=== PATIENT | female | born 1960 | race Caucasian/White ===

== ENCOUNTER 2024-05-21 14:01 | Inpatient (IN) ==
[2024-05-21] MEDS: LORazepam 2 mg VIAL 1 ml IV PUSH ONE (14:40)
[2024-05-21] MEDS: Lactated Ringers 1000 ml BAG 1,000 ML IV ONE (14:40)
[2024-05-21] MEDS: LORazepam 2 MG/ML 1 mL Syringe IV ONE (14:40)
[2024-05-21 14:58] LABS: Rapid Strep Molecular Negative (Negative)
[2024-05-21 15:00] LABS: ABS Basophils 0.1 10^3/uL (0.0-0.1); ABS Lymphocytes 2.1 10^3/uL (1.0-4.8); ABS Monocytes 1.4 10^3/uL (0.0-0.9); ABS Nucleated RBC 0.01 10^3/ul; Eosinophil % 0.1 %; Hematocrit 41.9 % (35-45); Hemoglobin 13.8 g/dL (11.5-14.3); Lymphocyte % 12.8 %; Mean Corpuscular Hgb Conc 33.1 g/dL (31-36); Mean Corpuscular Volume 96.8 fL (80-97); Mean Platelet Volume 7.1 fL (7.5-11.2); Platelet Count 461 10^3/uL (150-450); Red Blood Count 4.32 10^6/uL (3.63-4.92); Red Cell Distribution Width 14.2 % (12-17); White Blood Count 16.6 10^3/uL (3.8-11.8)
[2024-05-21 15:35] LABS: ALT 14 U/L (7-52); AST 26 U/L (13-39); Acetaminophen < 15 mcg/mL; Albumin 4.6 g/dL (3.2-5.2); Albumin/Globulin Ratio 1.5 (1-3); Alcohol, S < 13 mg/dL (<13); Alkaline Phosphatase 86 U/L (35-149); Anion Gap 12 mmol/L (2-16); Blood Urea Nitrogen 11 mg/dL (6-24); CO2 Carbon Dioxide 24 mmol/L (22-32); Calcium 10.7 mg/dL (8.6-10.3); Chloride 99 mmol/L (101-111); Creatinine, Serum 0.85 mg/dL (0.51-0.95); Glucose 121 mg/dL (70-100); Potassium 4.5 mmol/L (3.5-5.0); Salicylate < 2.50 mg/dL (<30); Sodium 135 mmol/L (135-145); Total Protein 7.6 g/dL (6.4-8.9); eGFR CKD-EPI 76.5 (>60)
[2024-05-21 15:49] LABS: TSH Ultra Thyroid Stim Horm 0.85 mcIU/mL (0.34-5.60)
[2024-05-21 15:56] LABS: Urine Appearance Clear; Urine Bilirubin Negative (Negative); Urine Blood Negative (Negative); Urine Color Light-Yellow; Urine Glucose Negative (Negative); Urine Ketones Negative (Negative); Urine Nitrite Negative (Negative); Urine Protein Trace (Negative); Urine Specific Gravity 1.008 (1.002-1.030); Urine Urobilinogen Negative (Negative); Urine pH 7.5 (5.0-8.0)
[2024-05-21 16:24] LABS: Urine Benzodiazepine Screen None Detected (None Detect); Urine Cannabinoids Screen Presumptive Positive (None Detect); Urine Opiates Screen None Detected (None Detect)
[2024-05-21] MEDS ORDERED: Al Hydrox/Mg Hydrox/Simet LIQ 30 ML UDC PO PRN (20:02)
[2024-05-22 08:32] LABS: HDL Cholesterol 86.5 mg/dL
[2024-05-22] MEDS: OLANZapine 5 mg TAB *ODT PO PRN (11:11)
[2024-05-22] MEDS: OLANZapine 5 mg TAB *ODT ONE (11:13)
[2024-05-22] MEDS: Nicotine GUM 4MG FRUIT FLAVOR PO PRN (15:40)
[2024-05-22] MEDS: Nicotine PATCH 21 MG/24 HR PATCH TRANSDERM SCH (15:40)
[2024-05-25] MEDS: OLANZapine 10 mg TAB*ODT PO SCH (21:45)
[2024-05-26 11:07] LABS: ABS Basophils 0.1 10^3/uL (0.0-0.1); ABS Lymphocytes 1.2 10^3/uL (1.0-4.8); ABS Monocytes 0.7 10^3/uL (0.0-0.9); ABS Neutrophils 5.5 10^3/uL (1.5-7.6); Eosinophil % 0.5 %; Hematocrit 38.4 % (35-45); Hemoglobin 12.9 g/dL (11.5-14.3); Mean Corpuscular Hemoglobin 32.8 pg (27-33); Mean Corpuscular Hgb Conc 33.5 g/dL (31-36); Platelet Count 310 10^3/uL (150-450); Red Blood Count 3.92 10^6/uL (3.63-4.92); Red Cell Distribution Width 14.3 % (12-17); White Blood Count 7.5 10^3/uL (3.8-11.8)
[2024-05-26] MEDS: Polyethylene Glycol 3350 17 GM PACKET PO SCH (17:26)
[2024-05-30 08:53] LABS: Creatinine, Serum 0.56 mg/dL (0.51-0.95); Lithium 0.82 mmol/L (0.6-1.2); eGFR CKD-EPI 101.8 (>60)
[2024-06-01] MEDS: OLANZapine 10 mg TAB*ODT PO SCH (20:26)
[2024-06-02] MEDS: [UNRECOGNIZED DRUG - REMARK] IM ONE (18:20)
[2024-06-04 08:27] VITALS: BP 136/85
== END 2024-06-04 11:30 | disposition home or self-care (01) | DRG 753 ==
LOC: ED 14:01 → EDHOLD 20:13 → BSU 20:36
PROVIDERS: ADMIT Psychiatry & Neurology Psychiatry; ATTEND Psychiatry & Neurology Psychiatry